=== PATIENT | female | born 1985 ===

== ENCOUNTER 2021-07-15 13:26 | Outpatient (REF) | payer OTHER, SELFPAY ==
[2021-07-15 14:45] LABS: COVID-19 Test Positive (Negative)
== END 2021-07-15 13:27 | disposition home or self-care (01) ==
LOC: HO.LAB 13:26
PROVIDERS: Visit Provider Internal Medicine
DX: Z20.822 Contact with and (suspected) exposure to COVID-19 (principal)
CPT/HCPCS: 87635; C9803

== ENCOUNTER 2021-09-28 18:02 | Emergency (ER) | payer OTHER, SELFPAY ==
[2021-09-28 18:30] VITALS: BP 131/80; PULSE 73; RESP 18; TEMP 37.1; O2SAT 98; BMI 40.7
--- NOTE | 2021-09-28 18:42 | PC.NURSE ---
patient ambulated to EM from waiting room with no issues . reports falling asleep on left arm previous night and woke up with limited range of motion now .
--- NOTE | 2021-09-28 18:49 | ED.EXTPRO ---
HPI - Extremity Problem General Chief complaint: Extremity Problem Stated complaint: left arm pain Time Seen by Provider: 09/28/21 18:48 Source: patient Mode of arrival: ambulatory Limitations: no limitations History of Present Illness HPI Narrative: 36 y/o female presenting to the ER from home fore evaluation of left elbow and upper arm pain that started this morning after she slept on her arm in an awkward position. She states that she passed out on top of her left arm with her arm bent and woke up this morning with severe pain. She states the pain is in her lateral dorsal elbow that is worse with palpation and movement. She also reports the muscles in her upper arm are sore. No numbness, tingling or weakness. She went to work where she does a lot of lifting as a [employer] and had to leave because she could not lift well without having pain. MD Complaint: extremity pain and joint pain Onset (ago): hour(s) Pain Consistency: constant Location: left, upper extremity and elbow Severity scale (1-10): 6 Quality: aching Radiation: proximal Relieving factors: immobilization, elevation and other (heat) Exacerbating factors: range of motion and palpation Associated symptoms: denies other symptoms Related Data Previous Rx's Medication Instructions Recorded acetaminophen 650 mg 650 mg PO Q8H PRN #30 tab 09/28/21 tablet,extended release (Tylenol Arthritis Pain) cyclobenzaprine 10 mg tablet 10 mg PO TID PRN #6 tab 09/28/21 naproxen 500 mg tablet 500 mg PO BID PRN #20 tab 09/28/21 Allergies Allergy/AdvReac Type Severity Reaction Status Date / Time No Known Allergies Allergy Unverified 03/20/20 15:20 [No Known Allergies*] Review of Systems Review of Systems: Constitutional: No Fever, No Chills Cardiovascular: No Chest Pain, No SOB Gastrointestinal: No Nausea, No Vomiting Musculoskeletal: + joint pain, + Myalgias Skin: No Skin Lesions, No rash Neuro: No Weakness, No Numbness Heme/Lymph: No Bruising, No Lymphadenopathy PMFSH Social History Social History Advance Directives: No Advance Directives Information Provided: No Physical Exam Vital Signs: Vital Signs: Last Vital Signs Temp 98.7 F 09/28/21 18:30 Pulse 73 09/28/21 18:30 Resp 18 09/28/21 18:30 BP 131/80 09/28/21 18:30 Pulse Ox 98 09/28/21 18:30 BMI result Body Mass Index 40.7 Appearance: Alert. Oriented X3. No acute distress. HEENT: normal inspection CVS: Normal heart rate and rhythm. Pulses normal. Respiratory: No respiratory distress. Skin: Skin warm and dry. Normal skin color. Normal skin turgor. No rashes. Extremities: normal inspection of left upper extremity, tenderness of the lateral bursa, no erythema, warmth or fluctuance. pain with full flexion of the elbow. tenderness of the soft tissue of upper arm, compartments soft and compressible. NV intact distally. Normal ROM of the shoulder, nontender. Neuro: Oriented X 3. No motor deficit. No sensory deficit. Course Course Course Narrative: 36 yo right hand dominant female presenting with left elbow and left upper arm pain after she fell asleep on the arm last night. No sensory deficit or weakness. There is tenderness over the lateral bursa without evidence of infection. Will give Rx for NSAID and flexeril for muscle pain in the upper arm. Work note provided per request. Stable for d/c home, encouraged to follow up with her PCP this week. Discharge Plan Discharge Clinical Impression: Bursitis of left elbow Patient Disposition: Home, Self-Care Instructions: Elbow Bursitis (ED) Prescriptions: New acetaminophen [Tylenol Arthritis Pain] 650 mg tablet extended release 650 mg PO Q8H PRN (Reason: pain) Qty: 30 0RF naproxen 500 mg tablet 500 mg PO BID PRN (Reason: pain) Qty: 20 0RF cyclobenzaprine 10 mg tablet 10 mg PO TID PRN (Reason: muscle spasm) Qty: 6 0RF Referrals: Mcak Danielle III, MD [Primary Care Provider] - 1 week (left arm pain) Stand Alone Forms: Work/School Release Interventions: ED Discharge Assessment Last Done: 09/28/21 19:07 Discharge Date/Time: 09/28/21 19:08
== END 2021-09-28 19:08 | disposition home or self-care (01) ==
PROVIDERS: Emergency Provider Emergency Medicine; PCP Internal Medicine
DX: M70.32 Other bursitis of elbow, left elbow (principal); Y93.84 Activity, sleeping; M79.602 Pain in left arm
CPT/HCPCS: 99283

== ENCOUNTER 2022-03-14 10:18 | Emergency (ER) | payer OTHER, SELFPAY ==
[2022-03-14 10:36] VITALS: BP 144/102; PULSE 98; RESP 18; TEMP 35.9; O2SAT 99; BMI 41.6
[2022-03-14 10:40] VITALS: BP 104/70; PULSE 87
--- NOTE | 2022-03-14 11:01 | ED.BACK ---
HPI - Back Pain/Injury General Chief Complaint: Back Pain/Injury Stated Complaint: Upper back pain/Pain when breathing Time Seen by Provider: 03/14/22 10:45 Source: patient Mode of arrival: ambulatory Limitations: no limitations History of Present Illness HPI Narrative: 37-year-old female here with reports of mid back pain for the last 5-6 weeks with no known injury or trauma. No radiation of pain. No associated numbness or tingling. No associated bowel or bladder incontinence. No fevers or chills. Pain is worsened with lifting or moving. Pain is worse with coughing and sneezing and deep breathing. Patient taking Motrin and Tylenol with continued symptoms. Patient was seen by her primary care doctor last week and given referral for physical therapy but she has not established this yet. Related Data Previous Rx's Medication Instructions Recorded acetaminophen 650 mg 650 mg PO Q8H PRN pain #30 tabs 09/28/21 tablet,extended release (Tylenol Arthritis Pain) cyclobenzaprine 10 mg tablet 10 mg PO TID PRN muscle spasm #6 09/28/21 tabs naproxen 500 mg tablet 500 mg PO BID PRN pain #20 tabs 09/28/21 cyclobenzaprine 10 mg tablet 10 mg PO TID PRN muscle spasm #15 03/14/22 tabs lidocaine 5 % topical patch 1 patch topical DAILY #15 ea 03/14/22 (Lidoderm) naproxen 500 mg tablet 500 mg PO BID PRN pain #30 tabs 03/14/22 Allergies Allergy/AdvReac Type Severity Reaction Status Date / Time No Known Allergies Allergy Verified 03/14/22 10:39 [No Known Allergies*] Review of Systems Review of Systems: Yes all other systems are reviewed and are negative Constitutional: Constitutional: Reports no additional constitutional complaints, Denies body ache(s), Denies chills, Denies fever(s), Denies headache(s) and Denies weakness Eyes: Eyes: Reports no additional eye complaints and Denies change in vision ENT: Reports system reviewed and no additional complaints, except as documented, Denies dizziness, Denies headache(s), Denies nasal congestion, Denies nasal discharge and Denies neck pain Cardiovascular: Cardiovascular: Reports no additional cardiovascular complaints, Denies chest pain, Denies leg edema and Denies dyspnea Respiratory: Respiratory: Reports no additional respiratory complaints, Denies cough and Denies dyspnea Gastrointestinal: Gastrointestinal: Reports no additional gastrointestinal complaints, Denies abdominal pain, Denies diarrhea, Denies nausea and Denies vomiting Genitourinary: Genitourinary: Reports no additional female genitourinary complaints and Denies urinary incontinence Musculoskeletal: Musculoskeletal: Reports no additional musculoskeletal complaints, Reports back pain, Denies arthralgias, Denies joint swelling, Denies neck pain, Denies numbness and Denies tingling Integumentary/Breasts: Skin/Breast: Reports system reviewed and no additional complaints, except as docu and Denies rash Neurologic: Reports system reviewed and no additional complaints, except as documented, Denies Abnormal speech present, Denies dizziness, Denies headache(s), Denies numbness, Denies tingling and Denies weakness PMFSH Past Medical History Attestation statement: The following information was validated with the patient. Source: old records reviewed and nursing notes reviewed Social History Social History Advance Directives: No Advance Directives Information Provided: Yes Physical Exam Vital Signs: Vital Signs: Last Vital Signs Temp 96.6 F L 03/14/22 10:36 Pulse 87 03/14/22 10:40 Resp 18 03/14/22 10:36 BP 104/70 03/14/22 10:40 Pulse Ox 99 03/14/22 10:36 O2 Del Method 03/14/22 10:36 BMI result Body Mass Index 41.6 Const: General: cooperative, healthy appearing, comfortable and no acute distress Orientation/consciousness: patient oriented x3 Limitations: no limitations HEENT: Head: Yes normal to inspection Ears: hearing grossly normal bilaterally General nose exam: Normal external nose present Face and sinus: Yes normal facial exam Mouth: Normal oral and palatal mucosa present Throat: Yes posterior oropharynx normal Eyes: General: appearance normal, both eyes and all related structures Pupils: Equal, round and reactive pupils present Neck: Neck: Yes normal visual inspection Chest: Chest palpation & inspection: normal inspection of the chest Resp: Effort & Inspection: normal respiratory effort Auscultation: clear to auscultation bilaterally Cardio: Rate: regular rate Rhythm: regular rhythm Peripheral pulses: Peripheral pulses 2+ throughout GI: Inspection: Yes normal to inspection Palpation (GI): Soft to palpation and nontender Auscultation: normal bowel sounds : General: Yes no CVA tenderness Back/Spine/Pelvis: Other: There is tenderness over the thoracic soft tissue of the mid spine with no midline tenderness, step-offs deformities. Pain is worsened with rotation of the spine in flexion and extension of the spine. Back: no CVA tenderness Thoracic/Lumbar Spine: thoracic and lumbar spine normal to inspection Skin: General skin exam: no rashes or lesions noted Neuro: General: patient oriented x3, no focal motor deficits and normal sensation to monofilament Cranial nerves: Yes CN's II-XII intact bilaterally, Yes Equal, round and reactive pupils present, Yes Bilaterally intact EOM present, Yes Nystagmus not present, Yes Normal facial strength present and Yes Midline tongue present Cognition (Neuro): normal cognition Speech: No Abnormal speech present Gait exam (Neuro): Normal gait present Motor exam (neuro): 5/5 motor strength present throughout Sensory Exam: Normal double simultaneous stimulation for sensation Deep tendon reflexes (DTR's): Right patellar reflex intensity grade: 2+ and Left patellar reflex intensity grade: 2+ Extrem: General: Yes normal to inspection MDM - Back Pain/Injury MDM Narrative Medical decision making narrative: 37-year-old female here with atraumatic mid back pain for several weeks despite using Motrin and Tylenol home. No neurological deficits or red flag symptoms. She has been seen by her primary care doctor and was referred to physical therapy but she has not started this yet. She has no midline tenderness on exam. She has no CVA tenderness or abdominal pain to suggest intra-abdominal pathology. She has no reports fevers, chills, neurological deficits or history IV drug abuse to suggest epidural abscess. Likely musculoskeletal. Will recommend NSAID, low-dose muscle relaxant, medicated patches and follow up with physical therapy Medical Records Attestation: I reviewed the patient's medical records. Lab Data Attestation: I reviewed the patient's lab results. Discharge Plan Discharge Clinical Impression: Thoracic back pain Patient Disposition: Home, Self-Care Instructions: Back Pain (ED) Additional Instructions: Heat or ice Gentle stretching Call to set up your appointment for physical therapy Prescriptions: New naproxen 500 mg tablet 500 mg PO BID PRN (Reason: pain) Qty: 30 0RF cyclobenzaprine 10 mg tablet 10 mg PO TID PRN (Reason: muscle spasm) Qty: 15 0RF lidocaine [Lidoderm] 5 % adhesive patch,medicated 1 patch topical DAILY Qty: 15 0RF Rx Instructions: leave on most painful area for up to 12 hrs No Action acetaminophen [Tylenol Arthritis Pain] 650 mg tablet extended release 650 mg PO Q8H PRN (Reason: pain) Qty: 30 0RF naproxen 500 mg tablet 500 mg PO BID PRN (Reason: pain) Qty: 20 0RF cyclobenzaprine 10 mg tablet 10 mg PO TID PRN (Reason: muscle spasm) Qty: 6 0RF Referrals: Hebert Farrell MD [Primary Care Provider] - 1 week (for persistent symptoms ) Interventions: ED Discharge Assessment Last Done: 03/14/22 11:29 Discharge Date/Time: 03/14/22 11:31
== END 2022-03-14 11:31 | disposition home or self-care (01) ==
PROVIDERS: Emergency Provider Emergency Medicine; PCP Internal Medicine
DX: M54.50 Low back pain, unspecified (principal); M54.6 Pain in thoracic spine; R06.02 Shortness of breath; Z79.899 Other long term (current) drug therapy
CPT/HCPCS: 99283

== ENCOUNTER 2024-02-24 09:59 | Emergency (ER) | payer OTHER, SELFPAY ==
--- NOTE | ~2024-02-24 | XR_ITS ---
RADIOGRAPH LUMBAR SPINE AND SACRUM/COCCYX CLINICAL HISTORY: Pain, injury. COMPARISON: No relevant prior studies are available for comparison. TECHNIQUE: 3 views of the lumbar spine and 3 views of the sacrum/coccyx. FINDINGS: Lumbar spine: No evidence of acute compression deformity or subluxation. Intervertebral disc heights are maintained. Normal appearance of the posterior elements. No significant paraspinal soft tissue abnormality. Right upper quadrant surgical clips are seen. Multiple pelvic phleboliths are identified. Sacrum/coccyx: No acute fracture or subluxation. SI joints are symmetric. No significant soft tissue abnormality. As above, multiple pelvic phleboliths are seen. XR/XR lumbar spine 2-3V IMPRESSION: No significant radiographic abnormality. Electronically signed by: Reshma Hernandes MD 02/24/2024 11:35 AM EDT
--- NOTE | ~2024-02-24 | XR_ITS ---
RADIOGRAPH LUMBAR SPINE AND SACRUM/COCCYX CLINICAL HISTORY: Pain, injury. COMPARISON: No relevant prior studies are available for comparison. TECHNIQUE: 3 views of the lumbar spine and 3 views of the sacrum/coccyx. FINDINGS: Lumbar spine: No evidence of acute compression deformity or subluxation. Intervertebral disc heights are maintained. Normal appearance of the posterior elements. No significant paraspinal soft tissue abnormality. Right upper quadrant surgical clips are seen. Multiple pelvic phleboliths are identified. Sacrum/coccyx: No acute fracture or subluxation. SI joints are symmetric. No significant soft tissue abnormality. As above, multiple pelvic phleboliths are seen. XR/XR sacrum coccyx min 2V IMPRESSION: No significant radiographic abnormality. Electronically signed by: Reshma Hernandes MD 02/24/2024 11:35 AM EDT
[2024-02-24 10:05] VITALS: BP 136/78; PULSE 92; RESP 16; TEMP 36.6; O2SAT 98; BMI 39.9
--- NOTE | 2024-02-24 10:15 | ED_ITS ---
HPI - General Adult General Chief complaint: Back Pain/Injury Stated complaint: back and tailbone pain Time Seen by Provider: 02/24/24 10:15 Source: patient Mode of arrival: ambulatory Limitations: no limitations History of Present Illness ED Provider: Annie Valentino PA-C HPI narrative: Patient is a 39 year old assigned female at with no reported medical history presenting to the emergency department today with low back pain and tailbone pain. Patient states that she has been having back issues for awhile but this seems to be different than her usual pulled muscle. Patient states that 2 weeks ago she sat down on a hard/old couch and now is unable to sit on one side of her buttock for too long without having to shift to the other. Patient denies any dizziness, lightheadedness, abdominal pain, nausea, vomiting, fever, chills, blurry vision, double vision, loss of vision, chest pain, difficulty breathing, shortness of breath, night sweats, pain with urination, increased uri nary frequency, increased urinary urgency, blood in her urine or stool, syncope or a near syncopal episode, bowel incontinence, bladder incontinence, or any other complaints at this time. Location: back and buttocks Relieving factors: none Exacerbating factors: none Associated symptoms: denies other symptoms Treatments prior to arrival: none Related Data Previous Rx's ?Medication ?Instructions ?Recorded acetaminophen 650 mg 650 mg PO Q8H PRN pain #30 tabs 09/28/21 tablet,extended release (Tylenol Arthritis Pain) cyclobenzaprine 10 mg tablet 10 mg PO TID PRN muscle spasm #6 09/28/21 tabs naproxen 500 mg tablet 500 mg PO BID PRN pain #20 tabs 09/28/21 cyclobenzaprine 10 mg tablet 10 mg PO TID PRN muscle spasm #15 03/14/22 tabs lidocaine 5 % topical patch 1 patch topical DAILY #15 ea 03/14/22 (Lidoderm) naproxen 500 mg tablet 500 mg PO BID PRN pain #30 tabs 03/14/22 cyclobenzaprine 5 mg tablet 5 mg PO TID PRN pain 7 days #21 02/24/24 tabs prednisone 20 mg tablet 20 mg PO DAILY 7 days #7 tabs 02/24/24 Allergies Allergy/AdvReac Type Severity Reaction Status Date / Time No Known Allergies Allergy Verified 02/24/24 10:07 [No Known Allergies*] Review of Systems Constitutional: Constitutional: Reports no additional constitutional co mplaints, Denies chills, Denies fever(s) and Denies night sweats Eyes: Eyes: Reports no additional eye complaints, Denies blurry vision, Denies change in vision, Denies diplopia, Denies eye discharge, Denies loss of vision and Denies eye pain ENT: Denies dizziness Cardiovascular: Cardiovascular: Reports no additional cardiovascular complaints, Denies chest pain, Denies lightheadedness, Denies Loss of Consciousness and Denies dyspnea Respiratory: Respiratory: Reports no additional respiratory complaints and Denies dyspnea Gastrointestinal: Gastrointestinal: Reports no additional gastrointestinal complaints, Denies abdominal pain, Denies melena, Denies hematochezia, Denies change in bowel habits and Denies change in stool character Genitourinary: Genitourinary: Denies hematuria, Denies urinary frequency, Denies dysuria, Denies urinary incontinence, Denies urinary hesitancy and Denies urinary urgency Musculoskeletal: Musculoskeletal: Reports no additional musculoskeletal complaints, Reports back pain, Denies numbness and Denies tingling Neurologic: Denies dizziness, Denies loss of vision, Denies numbness and Denies tingling Psychiatric: Psychiatric: Reports no additional psychiatric complaints Endocrine: Endocrine: Reports no additional endocrine complaints Hematologic/Lymphatic: Hematologic/Lymphatic: Reports no additional hematologic/lymphatic complaints Allergic/Immunologic: Allergic/Immunologic: Reports no additional allergic/immunologic complaints PMFSH Past Medical History Attestation statement: The following information was validated with the patient. Source: old records reviewed and nursing notes reviewed Social History Social History Advance Directives: No Advance Directives Information Provided: Yes Do you have a plan to hurt others: No Plan Physical Exam ED Vital Signs: Vital Signs - 24 hr 02/24/24 10:05 02/24/24 12:17 Temperature 97.9 F 97.9 F Pulse Rate 92 92 Respiratory Rate 16 16 Blood Pressure 136/78 136/78 Pulse Oximetry 98 98 Oxygen Delivery Method Room Air Room Air BMI result Body Mass Index 39.9 Const General: cooperative, no acute distress, alert and awake Nutritional Appearance: well nourished Orientation/consciousness: patient oriented x3 Limitations: no limitations HENMT Head: Yes normal to inspection and Yes atraumatic Ears: hearing grossly normal bilaterally and external ears normal General nose exam: Normal external nose present, no nasal discharge noted and no epistaxis Face and sinus: Yes normal facial exam, No abrasion and No laceration Mouth: Normal oral and palatal mucosa present, no drooling and no muffled voice Eyes General: appearance normal, both eyes and all related structures Periorbital: periorbital findings normal Eyelids: Yes eyelids normal Conjunctivae: conjunctivae normal Pupils: Equal, round and reactive pupils present EOM: EOMs intact bilaterally Neck Neck: Yes normal visual inspection, Yes full ROM and Yes no lymphadenopathy Chest Chest palpation & inspection: normal inspection of the chest Resp Effort & Inspection: normal respiratory effort and able to speak in complete sentences GI Inspection: Yes normal to inspection Back/Spine/Pelvis Cervical Spine: normal cervical lordosis and cervical ROM normal Thoracic/Lumbar Spine: thoraco-lumbar ROM normal Neuro General: patient oriented x3 and moves all extremities Cranial nerves: Yes Equal, round and reactive pupils present Cognition (Neuro): normal cognition Extrem General: Yes normal to inspection, Yes full ROM and Yes capillary refill normal Psych Appearance: grossly normal Mental Status: mental status grossly normal Affect: normal affect Attitude: cooperative Thought process: Normal thought process present Thought content: Normal thought content present Insight: Good insight present (Psych) Medications Administered Discontinued Medications Generic Name Dose Route Start Last Admin Trade Name Freq PRN Reason Stop Dose Admin Cyclobenzaprine HCl 5 mg 02/24/24 10:02/24/24 10:38 Cyclobenzaprine Hcl 5 Mg Tablet PO 02/24/24 10:23 5 mg ONCE ONE Administration Ketorolac Tromethamine 15 mg 02/24/24 10:22 02/24/24 10:39 Ketorolac Tromethamine 15 Mg/Ml Vial IM 02/24/24 10:23 15 mg ONCE ONE Administration Prednisone 20 mg 02/24/24 10:22 02/24/24 10:39 Prednisone 20 Mg Tablet PO 02/24/24 10:23 20 mg ONCE ONE Administration Medical Decision Making Medical Decision Making [facility] Narrative: Patient is a 39 year old assigned female at with no reported medical history presenting to the emergency department today with low back pain and tailbone pain. Patient's physical exam was unremarkable. Patient's lumbar and coccyx x-rays showed no acute process. I explained my physical exam findings as well as all test results to the patient. I answered all questions asked by the patient. I stressed the importance of the patient taking her medication as directed (either prescribed or as the over the counter packaging recommends). I stressed the importance of the patient following up with her primary care provider. I stressed the importance of the patient returning to the emergency department immediately if her symptoms were to worsen or if she were to develop any dizziness, shortness of breath, difficulty breathing, chest pain, blurry vision, loss of vision, nausea, vomiting, abdominal pain, fever, chills, back pain, or any other complaints. Patient verbalized agreement and understanding with this treatment plan and discharge. Differential Diagnosis Differential Diagnoses: The differential diagnosis associated with the presentat ion includes Lumbar sprain Lumbar strain Coccyx fracture Coccyx contusion Muscle spasm Admission/Observation Consideration of admission/observation: Escalation of care including admission/observation considered Patient would have been admitted to the hospital had her work up had any findings where hospital admission was appropriate and her clinical presentation warranted hospital admission. Independent Interpretation I performed an independent interpretation of an: Plain X-Ray Interpretation: My interpretation is in agreement with the radiologist's impression of these imaging studies. RADIOGRAPH LUMBAR SPINE AND SACRUM/COCCYX CLINICAL HISTORY: Pain, injury. COMPARISON: No relevant prior studies are available for comparison. TECHNIQUE: 3 views of the lumbar spine and 3 views of the sacrum/coccyx. FINDINGS: Lumbar spine: No evidence of acute compression deformity or subluxation. Intervertebral disc heights are maintained. Normal appearance of the posterior elements. No significant paraspinal soft tissue abnormality. Right upper quadrant surgical clips are seen. Multiple pelvic phleboliths are identified. Sacrum/coccyx: No acute fracture or subluxation. SI joints are symmetric. No significant soft tissue abnormality. As above, multiple pelvic phleboliths are seen. XR/XR sacrum coccyx min 2V IMPRESSION: No significant radiographic abnormality. Electronically signed by: Reshma Hernandes MD 02/24/2024 11:35 AM EDT RP Dictated By: Mounika Hernandes Signed By: Electronically signed by Mounika Hernandes 02/24/24 [id number] Radiology Impression Discussion of test interpretation with radiology: I have reviewed the radiologist's reading. Prescription Management I considered prescription management with: Pain Medication (patient prescribed pain medication) Discharge Plan Discharge Clinical Impression: Low back pain, Coccyx pain Patient Disposition: Home, Self-Care Instructions: Acute Low Back Pain (ED) Additional Instructions: Follow up with your primary care provider. Return to the emergency department immediately if your symptoms worsen or if you develop any dizziness, shortness of breath, difficulty breathing, chest pain, blurry vision, loss of vision, nausea, vomiting, abdominal pain, fever, chills, back pain, or any other complaints. Prescriptions: New cyclobenzaprine 5 mg tablet 5 mg PO TID PRN (Reason: pain) 7 Days Qty: 21 0RF prednisone 20 mg tablet 20 mg PO DAILY 7 Days Qty: 7 0RF No Action acetaminophen [Tylenol Arthritis Pain] 650 mg tablet extended release 650 mg PO Q8H PRN (Reason: pain) Qty: 30 0RF naproxen 500 mg tablet 500 mg PO BID PRN (Reason: pain) Qty: 20 0RF cyclobenzaprine 10 mg tablet 10 mg PO TID PRN (Reason: muscle spasm) Qty: 6 0RF naproxen 500 mg tablet 500 mg PO BID PRN (Reason: pain) Qty: 30 0RF cyclobenzaprine 10 mg tablet 10 mg PO TID PRN (Reason: muscle spasm) Qty: 15 0RF lidocaine [Lidoderm] 5 % adhesive patch,medicated 1 patch topical DAILY Qty: 15 0RF Rx Instructions: leave on most painful area for up to 12 hrs Referrals: Velma Dc MD [Primary Care Provider] - Stand Alone Forms: Work/School Release Interventions: ED Discharge Assessment Last Done: 02/24/24 12:17 Discharge Date/Time: 02/24/24 12:18 Print Language: Lao
[2024-02-24] MEDS: Cyclobenzaprine HCl 5 MG TABLET PO (10:38)
[2024-02-24] MEDS: predniSONE 20 MG TABLET PO (10:39)
[2024-02-24] MEDS: Ketorolac Tromethamine 15 MG/ML VIAL IM (10:39)
[2024-02-24 12:17] VITALS: BP 136/78; PULSE 92; RESP 16; TEMP 36.6; O2SAT 98
== END 2024-02-24 12:18 | disposition home or self-care (01) ==
PROVIDERS: Emergency Provider Emergency Medicine; PCP Family Medicine
DX: M54.50 Low back pain, unspecified (principal); M53.3 Sacrococcygeal disorders, not elsewhere classified
CPT/HCPCS: 72100; 72220; 96372; 99283; 99284; J1885